=== PATIENT | female | born 1995 | race Hispanic/Latino ===

== ENCOUNTER 2024-11-27 11:06 | Emergency (ER) | payer SELFPAY ==
[~2024-11-27] VITALS: Ht 144.8 cm; Wt 42.6 kg
--- NOTE | 2024-11-27 11:13 | ERN ---
ED Note History of Present Illness Stated Complaint: SQUISHED LEFT THUMB, PRESSURE Chief Complaint: Finger Injury Time Seen by MD: 11:08 Dictation: PATIENT IS A 29-YEAR-OLD FEMALE HERE WITH A CRUSH INJURY AND SUBUNGUAL HEMATOMA TO THE LEFT THUMB ONSET YESTERDAY. SHE STATES SHE CLOSED HER CAR DOOR ON HER THUMB. NO PRIMARY CARE DOCTOR TOOK TYLENOL PRIOR TO ARRIVAL FOR PAIN. SKIN INTACT TO FINGER. Allergies: Coded Allergies: No Known Allergies (Unverified Allergy, Unknown, 11/27/24) Past Medical History History: Not Applicable RN Note Reviewed/Agreed w/PFSH: Yes Review of System Dictation CONSTITUTIONAL: NEGATIVE EXCEPT FOR HPI HEAD/FACE: NEGATIVE EXCEPT FOR HPI EENT: NEGATIVE EXCEPT FOR HPI RESPIRATORY: NEGATIVE EXCEPT FOR HPI GASTROINTESTINAL/ABDOMINAL: NEGATIVE EXCEPT FOR HPI GENITOURINARY: NEGATIVE EXCEPT FOR HPI MUSCULOSKELETAL: NEGATIVE EXCEPT FOR HPI DISTAL LEFT THUMB PAIN WITH HEMATOMA INTEGUMENTARY: NEGATIVE EXCEPT FOR HPI NEUROLOGICAL/PSYCH: NEGATIVE EXCEPT FOR HPI HEMATOLOGIC/LYMPHATIC: NEGATIVE EXCEPT FOR HPI ALL SYSTEMS NEGATIVE, EXCEPT NOTED ABOVE. 13 POINT REVIEW OF SYSTEMS ASSESSED AND ALL NEGATIVE EXCEPT FOR ABOVE. Initial Vital Sign VS Vital Signs Date Time Temp Pulse Resp B/P (MAP) Pulse Ox O2 Delivery O2 Flow Rate FiO2 11/27/24 11:10 97.9 64 16 111/84 97 Room Air 0 Physical Exam Dictation VITAL SIGNS REVIEWED GENERAL APPEARANCE: ALERT, ORIENTED X 3, MODERATE ACUTE DISTRESS, WELL DEVELOP ED, NOURISHED. HEAD AND FACE: NON-TRAUMATIC. EYES: PERRL, PINK CONJUNCTIVAS, EYELID NO TRAUMA, ANTERIOR CHAMBER WITH ARCUS SENILIS. EARS: PINNAS INTACT AND NO SIGNS OF TRAUMA OR ERYTHEMA EAR CANALS CLEAR AND NO DISCHARGE TM NO ERYTHEMA NOSE: NO DISCHARGE, NO BLEEDING. OROPHARYNX: MOUTH NORMAL, TONGUE PINK, PHARYNX CLEAR,NO ERYTHEMA, TONSILS NO EXUDATES, NO ABSCESSES NOTED, MUCOUS MEMBRANE MOIST NECK: SUPPLE, NON-TENDER, NO THYROMEGALY, NO MASSES, NO JVD, NO BRUITS BREAST:DEFERRED CHEST:NO TENDERNESS, NO CREPITUS, NO PARADOXICAL MOVEMENT, NO RETRACTIONS LUNGS:CLEAR, WELL-VENTILATED, SYMMETRIC, NO RALES, NO WHEEZING, NO RHONCHI, NO STRIDOR, GOOD BREATH SOUNDS BILATERALLY HEART: REGULAR RATE, REGULAR RHYTHM, NO MURMUR, NO GALLOPS VASCULAR: NO PERIPHERAL EDEMA, ABDOMEN: SOFT, POSITIVE BOWEL SOUNDS, NONDISTENDED, NO GUARDING, NONTENDER, NO REBOUND, NO MASSES NO HEPATOMEGALY, NO SPLENOMEGALY, NO DURAND'S SIGN, NO HERNIAS. RECTAL: DEFERRED GENITAL: DEFERRED NEUROLOGICAL: NORMAL SPEECH, MOTOR FUNCTION INTACT, SENSORY FUNCTION INTACT MUSCULOSKELETAL: NECK NONTENDER, FULL RANGE OF MOTION, BACK NONTENDER, FULL RANGE OF MOTION, EXTREMITIES: TENDERNESS AND MILD SWELLING TO DISTAL LEFT THUMB WITH SOME UNGUAL HEMATOMA NOTED. SKIN: COLOR PINK, DRY, NO TURGOR, NO RASH, NO LACERATIONS, NO ABRASIONS, NO CONTUSIONS. LYMPHATIC: DEFERRED Results (Laboratory/Radiology) Laboratory/Radiology 1215/LEFT HAND X-RAY NEGATIVE NO DISTAL THUMB FRACTURE Labs Reviewed?: Yes ED Course ED Course Orders Procedure Category Date Status Time Hand 3+Vws Lt RAD 11/27/24 Taken 11:10 Acetaminophen With PHA 11/27/24 Complete Codeine (Tylenol-Code 11:30 Lidocaine Hcl 1% 20ml PHA 11/27/24 Complete Vial (Lidocaine Hc 12:00 Current Medications Medications (Trade) Dose Ordered Sig/Lisa Route PRN Reason Start Time Stop Time Status Last Admin Dose Admin Acetaminophen/ Codeine Phosphate (TYLenol-coDEINE TAB) 2 tab ONCE ONCE PO 11/27/24 11:30 11/27/24 11:31 DC 11/27/24 11:39 Lidocaine HCl (Lidocaine HCl 1% 20ml Vial) 5 ml ONCE ONCE INJ 11/27/24 12:00 11/27/24 12:01 DC 11/27/24 11:40 Vital Signs Date Time Temp Pulse Resp B/P (MAP) Pulse Ox O2 Delivery O2 Flow Rate FiO2 11/27/24 11:10 97.9 64 16 111/84 97 Room Air 0 Medical Decision Making MDM MEDICAL DECISION-MAKING BASED ON X-RAY OF LEFT THUMB TO RULE OUT FRACTURE SUBUNGUAL HEMATOMA WAS EVACUATED USING TREPHINATION PATIENT DISCHARGED HOME ON [place] FOR SEVEN DAYS TOLD TO SEE YOUR PRIMARY CARE DOCTOR FOR FOLLOW UP TOLERATED WELL Procedure Procedure Dictation: 1215/PROCEDURE EXPLAINED TO PATIENT SHE AGREED TO PROCEED PALMAR DISTAL LEFT THUMB PREPPED STERILELY USED 1.5 ML LIDOCAINE 1% PLAIN FOR DIGITAL BLOCK NAIL WAS TREPHINATED WITH18 GAUGE NEEDLE APPROXIMATE 1.5 ML BLOOD EVACUATED PATIENT STATE FELT MARKEDLY BETTER AFTER TREATMENT DX & DISP Disposition: Discharge Departure Impression: Primary Impression: Crushing injury of left thumb, initial encounter Additional Impression: Hematoma, subungual, thumb, left Condition: Stable Scripts Ibuprofen (Ibuprofen 800 mg Tab) 800 Mg Tab 800 MG PO Q8H PRN for fever or pain, #30 TAB 0 Refills Prov: JUANJO MUÑIZ NP 11/27/24 Cephalexin (Cephalexin) 500 Mg Tablet 1 TAB PO TID for 7 Days, #21 TAB 0 Refills Prov: JUANJO MUÑIZ NP 11/27/24 Additional Instructions: FOLLOW-UP WITH PRIMARY CARE PROVIDER IN 1 TO 2 DAYS. TAKE MEDICATIONS DIRECTED HERE IN THE EMERGENCY ROOM. OKAY TO CONTINUE HOME MEDICATIONS UNLESS OTHERWISE DISCUSSED DURING YOUR VISIT IN THE EMERGENCY ROOM TODAY. RETURN TO YOUR NEAREST EMERGENCY ROOM IF SYMPTOMS WORSEN OR IF THERE IS NO IMPROVEMENT. CALL 911 IF YOU NEED IMMEDIATE ASSISTANCE. TAKE TYLENOL OR MOTRIN [id number] NEEDED AND IF NO CONTRAINDICATIONS ARE PRESENT. INCREASE ORAL HYDRATION. A WOUND CULTURE OR URINE CULTURE WAS ORDERED HERE IN THE EMERGENCY ROOM DEPARTMENT PLEASE FOLLOW-UP WITH PRIMARY CARE PROVIDER AND ADVISE THEM TO GET REPEAT PORTS FROM OUR FACILITY. IF YOU HAD ANY MARINA WRAP/SPLINTS THAT WERE APPLIED HERE, PLEASE DO NOT REMOVE THEM UNTIL YOU SEE YOUR PRIMARY CARE OR SPECIALTY. TAKE ANTIBIOTICS DIRECTED UNTIL GONE. KEEP PUNCTURE WOUND TO LEFT THUMB COVERED WITH TRIPLE ANTIBIOTIC OINTMENT/[id number] AND BAND-AID FOR THE NEXT FIVE DAYS. Time of Disposition: 12:18 I have reviewed the case, and I agree with, Diagnosis and Plan JUANJO MUÑIZ NP Nov 27, 2024 11:13
[2024-11-27] MEDS: acetaMINOPHEN WITH coDEINE 1 TAB TAB PO ONE (11:39)
[2024-11-27] MEDS: LIDOCAINE HCL 1% 20 ML VIAL INJ ONE (11:40)
[2024-11-27] MEDS ORDERED: IBUP-2077 PO (12:19)
[2024-11-27] MEDS ORDERED: CEPH500T PO (12:19)
[2024-11-27 12:43] VITALS: BP 118/69; PULSE 65; RESP 18; TEMP 97.3; O2SAT 99
[2024-11-27] MEDS: NEOMY SULF/BACITRA/POLYMYXIN B 1 EACH PACKET TP ONE (12:43)
--- NOTE | 2024-11-27 12:46 | HMCIMG ---
Exam Type: HAND 3+VWS LT Clinical Information: CRUSH INJURY DISTAL LEFT THUMB YESTERDAY Comparison: None Findings: The bone examination is unremarkable. No fractures or dislocations are seen. No radiopaque foreign bodies are noted. Soft tissues are preserved. IMPRESSION: Normal examination.
== END 2024-11-27 12:45 | disposition home or self-care (01) ==
LOC: EEVIPCON 11:06 → EDH 11:06
DX: S67.02XA Crushing injury of left thumb, initial encounter (principal); S60.112A Contusion of left thumb with damage to nail, initial encounter; W23.0XXA Caught, crushed, jammed, or pinched between moving objects, initial encounter; Y93.89 Activity, other specified; Y92.89 Other specified places as the place of occurrence of the external cause; Y99.8 Other external cause status
CPT/HCPCS: 73130; 99283

== ENCOUNTER 2025-02-11 22:37 | Emergency (ER) | payer OTHER ==
[~2025-02-11] VITALS: Ht 144.8 cm; Wt 40.8 kg
[~2025-02-11 22:37] MED LIST: CEPH500T PO; IBUP-2077 PO
[2025-02-11] MEDS: 0.9%NACL 1000ML 1,000 ML IV ONE (23:00)
[2025-02-11] MEDS: acetaMINOPHEN 500 MG TABLET PO ONE (23:01)
--- NOTE | 2025-02-11 23:02 | EKG ---
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
[2025-02-11 23:14] LABS: BASOPHILS # (AUTO) 0.02 K/uL (0.00-0.20); BASOPHILS % (AUTO) 0.3 % (0.0-5.0); EOSINOPHILS # (AUTO) 0.17 K/uL (0.00-0.70); EOSINOPHILS % (AUTO) 2.2 % (0.0-8.0); HEMATOCRIT 37.2 % (36-48); IMMATURE GRANULOCYTE ABSOLUTE 0.03 K/uL (0-1); LYMPHOCYTES # (AUTO) 3.1 K/uL (1.0-4.8); LYMPHOCYTES % (AUTO) 39.6 % (21.0-51.0); MEAN CORPUSCULAR HEMOGLOBIN 31.4 pg (27.0-33.0); MEAN CORPUSCULAR HGB CONC 35.2 g/dL (32.0-36.0); MEAN CORPUSCULAR VOLUME 89.2 fL (79-99); MONOCYTES # (AUTO) 0.6 K/uL (0.1-1.0); MONOCYTES % (AUTO) 8.2 % (3.0-13.0); NEUTROPHILS # (AUTO) 3.8 K/uL (1.8-7.7); NEUTROPHILS % (AUTO) 49.3 % (40.0-77.0); PLATELET COUNT (AUTO) 211 K/uL (130-400); RED BLOOD CELL COUNT(AUTO) 4.17 MIL/uL (4.00-5.50); RED CELL DISTRIBUTION WIDTH 11.9 % (11.0-15.5); WHITE BLOOD COUNT (AUTO) 7.8 K/uL (4.8-10.8)
[2025-02-11 23:23] LABS: ADD UA MICROSCOPIC YES; APPEARANCE,URINE CLOUDY (CLEAR); BILIRUBIN,URINE NEGATIVE (NEGATIVE); COLOR,URINE LIGHT-YELLOW (YELLOW); GLUCOSE, URINE (UA) NEGATIVE (NEGATIVE); KETONES,URINE NEGATIVE (NEGATIVE); LEUKOCYTE ESTERASE ,URINE 25 Leu/uL (NEGATIVE); NITRATE,URINE 2+ (NEGATIVE); OCCULT BLOOD,URINE SMALL (NEGATIVE); PROTEIN,URINE NEGATIVE (NEGATIVE); UROBILINOGEN,URINE 0.2 mg/dL (0.2-1.0)
[2025-02-11 23:26] LABS: BACTERIA,URINE RARE /HPF (None Seen); MUCUS,URINE MANY LPF (None Seen); SQUAMOUS EPITHELIAL CELL,UR MOD /HPF (0-2)
[2025-02-11 23:28] LABS: CREATININE 0.5 mg/dL (0.5-1.0); POTASSIUM 3.6 mmol/L (3.5-5.1)
[2025-02-11 23:30] LABS: AMPHET/METH SCREEN,URINE NEGATIVE (NEGATIVE); BARBITURATE SCREEN, URINE NEGATIVE (NEGATIVE); BENZODIAZEPINES SCREEN,URINE NEGATIVE (NEGATIVE); CANNABINOID SCREEN,URINE NEGATIVE (NEGATIVE); COCAINE SCREEN,URINE NEGATIVE (NEGATIVE); OPIATE SCREEN,URINE NEGATIVE (NEGATIVE); PHENCYCLIDINE SCREEN,URINE NEGATIVE (NEGATIVE)
[2025-02-11 23:33] LABS: MAGNESIUM 2.1 mg/dL (1.80-2.40)
[2025-02-11] MEDS: cefTRIAXone 1G VIAL IVPB ONE (23:44)
--- NOTE | 2025-02-12 00:17 | HMCIMG ---
CT HEAD/BRAIN W/O CONTRAST HISTORY: Dizziness COMPARISON: None TECHNIQUE: Multiple sequential axial images of the head were obtained from the base of the skull through vertex. Patient was not given contrast through intravenous route. FINDINGS: The ventricles and extraventricular CSF spaces are nondilated for patient's age. There is no midline shift, mass effect or herniation. No acute intracranial bleed is seen. Visualized portion of the paranasal sinuses are grossly within normal limits. IMPRESSION: 1. No acute intracranial bleed is seen. CT was performed with one or more following dose reduction techniques: automated exposure control, adjustment of the mA and kv according to patient's size, or use of a iterative reconstruction technique.
[2025-02-12] MEDS ORDERED: MACR100 PO (00:56)
--- NOTE | 2025-02-12 00:57 | ERN ---
ED Note History of Present Illness Stated Complaint: DIZZINESS, NEAR SYNCOPE Chief Complaint: Multiple Complaints Time Seen by MD: 22:40 Time Seen by Midlevel: 22:40 Dictation: The patient is a 29-year-old female with a history of who presents to the emergency department with complaints of dizziness and near-syncope onset today. Patient reports that throughout the day she has been feeling like the room is spinning and she felt like passing out while standing. Patient reports frontal headache. Patient denies any falls, head trauma, fevers, shortness of breath, upper respiratory infection, vomiting. No other complaints reported. Allergies: Coded Allergies: No Known Allergies (Unverified Allergy, Unknown, 11/27/24) Home Meds Active Scripts Ibuprofen (Ibuprofen 800 mg Tab) 800 Mg Tab, 800 MG PO Q8H PRN for fever or pain , #30 TAB 0 Refills Prov:JUANJO MUÑIZ GIFT MANAGER 11/27/24 Cephalexin (Cephalexin) 500 Mg Tablet, 1 TAB PO TID for 7 Days, #21 TAB 0 Refills Prov:JUANJO MUÑIZ GIFT MANAGER 11/27/24 Past Medical History Past Medical History: No Pertinent History Surgical History: History: Not Applicable LMP: February 04, 2025 RN Note Reviewed/Agreed w/PFSH: Yes Review of System Dictation Constitutional: Negative for fever,chills, and weight loss Eyes: Negative for injury, pain,redness, and discharge ENT: Negative for injury,pain or swelling Cardiovascular: Negative for chest pain, palpitations, and edema Respiratory: Negative for shortness of breath, cough, and wheezing, Abdomen/GI: Negative for abdominal pain, nausea, vomiting, diarrhea, and constipation Back: Negative for injury and pain : Negative for injury, bleeding and discharge MS/Extremity: Negative for injury and deformity Skin: Negative for rash, and discoloration Neuro: Negative for weakness, numbness, tingling, and seizure positive for dizziness, headache Psych: Negative for suicide ideation, homicidal ideation, and hallucinations Initial Vital Sign VS Vital Signs Date Time Temp Pulse Resp B/P (MAP) Pulse Ox O2 Delivery O2 Flow Rate FiO2 02/11/25 22:39 98.8 59 18 120/84 99 02/11/25 23:25 Room Air* 0 21 Physical Exam Dictation Vital Signs reviewed General Appearance: Alert, oriented x 3, no acute distress, well developed, nourished. Head and Face: non-traumatic. Eyes: PERRL, pink conjunctivas, eyelid no trauma, anterior chamber with arcus senilis. Ears: Pinnas intact and no signs of trauma or erythema ear canals clear and no discharge TM no erythema Nose: No discharge, no bleeding. Oropharynx: Mouth normal, tongue pink. pharynx clear,no erythema, tonsils no exudates, no abscesses noted, mucous membrane moist Neck: Supple, non-tender, no thyromegaly, no masses, no JVD, no bruits Breast:Deferred Chest:No tenderness, no crepitus, no paradoxical movement, no retractions Lungs:Clear, well-ventilated, symmetric, no rales, no wheezing, no rhonchi, no stridor, good breath sounds bilaterally Heart: Regular rate, regular rhythm, no murmur, no gallops Vascular: no peripheral edema, Abdomen: Soft, positive bowel sounds, nondistended, no guarding, nontender, no rebound, no masses no hepatomegaly, no splenomegaly, no Blount's sign, no hernias. Rectal: Deferred Genital: Deferred Neurological: Normal speech, motor function intact, sensory function intact , upper extremities equal in strength, lower extremities equal in strength, no facial droop Musculoskeletal: Neck nontender, full range of motion, back nontender, full range of motion, Extremities: nontender, full range of motion Skin: Color pink, dry, no turgor, no rash, no lacerations, no abrasions, no contusions. Lymphatic: Deferred Results (Laboratory/Radiology) Laboratory/Radiology Laboratory Tests Test 02/11/25 23:10 02/11/25 23:13 White Blood Count 7.8 K/uL (4.8-10.8) Red Blood Count 4.17 MIL/uL (4.00-5.50) Hemoglobin 13.1 g/dL (12.0-16.0) Hematocrit 37.2 % (36-48) Mean Corpuscular Volume 89.2 fL (79-99) Mean Corpuscular Hemoglobin 31.4 pg (27.0-33.0) Mean Corpuscular Hemoglobin Concent 35.2 g/dL (32.0-36.0) Red Cell Distribution Width 11.9 % (11.0-15.5) Platelet Count 211 K/uL (130-400) Mean Platelet Volume 9.7 fL (7.5-10.5) Immature Granulocyte % (Auto) 0.4 % (0-1) Neutrophils (%) (Auto) 49.3 % (40.0-77.0) Lymphocytes (%) (Auto) 39.6 % (21.0-51.0) Monocytes (%) (Auto) 8.2 % (3.0-13.0) Eosinophils (%) (Auto) 2.2 % (0.0-8.0) Basophils (%) (Auto) 0.3 % (0.0-5.0) Neutrophils # (Auto) 3.8 K/uL (1.8-7.7) Lymphocytes # (Auto) 3.1 K/uL (1.0-4.8) Monocytes # (Auto) 0.6 K/uL (0.1-1.0) Eosinophils # (Auto) 0.17 K/uL (0.00-0.70) Basophils # (Auto) 0.02 K/uL (0.00-0.20) Absolute Immature Granulocyte (auto 0.03 K/uL (0-1) Nucleated Red Blood Cells 0.0 % (0.0-0.19) Sodium Level 141 mmol/L (136-145) Potassium Level 3.6 mmol/L (3.5-5.1) Chloride Level 107 mmol/L (101-111) Carbon Dioxide Level 28 mmol/L (21-32) Blood Urea Nitrogen 12 mg/dL (7-18) Creatinine 0.5 mg/dL (0.5-1.0) Glomerular Filtration Rate Calc 131 mL/min (>90) Random Glucose 103 mg/dL (70-105) Total Calcium 8.8 mg/dL (8.5-10.1) Magnesium Level 2.10 mg/dL (1.80-2.40) Total Creatine Kinase 72 U/L (21-232) Troponin I High Sensitivity 5 ng/L (4-50) Serum Test, Qualitative NEGATIVE (NEGATIVE) Urine Color LIGHT-YELLOW (YELLOW) Urine Appearance CLOUDY (CLEAR) H Urine pH 6.0 (5.0-8.0) Urine Specific Effort 1.028 (1.001-1.031) Urine Protein NEGATIVE mg/dL (NEGATIVE) Urine Glucose (UA) NEGATIVE mg/dL (NEGATIVE) Urine Ketones NEGATIVE mg/dL (NEGATIVE) Urine Occult Blood SMALL (NEGATIVE) H Urine Nitrate 2+ (NEGATIVE) H Urine Bilirubin NEGATIVE mg/dL (NEGATIVE) Urine Urobilinogen 0.2 mg/dL (0.2-1.0) Urine Leukocyte Esterase 25 Jareth/uL (NEGATIVE) H Urine RBC 6-10 /HPF (0-1) H Urine WBC 6-10 /HPF (0-1) H Urine Squamous Epithelial Cells MOD /HPF (0-2) Urine Bacteria RARE /HPF (None Seen) Urine Opiates Screen NEGATIVE (NEGATIVE) Urine Barbiturates Screen NEGATIVE (NEGATIVE) Urine Phencyclidine Screen NEGATIVE (NEGATIVE) Urine Amphetamines Screen NEGATIVE (NEGATIVE) Urine Benzodiazepines Screen NEGATIVE (NEGATIVE) Urine Cocaine Screen NEGATIVE (NEGATIVE) Urine Marijuana (THC) Screen NEGATIVE (NEGATIVE) REASON: dizzy, near syncope ORDERING PHYSICIAN: JUAN RODRIGUEZ PROCEDURE: HEAD WO - CT HEAD/BRAIN W/O CONTRAST CT HEAD/BRAIN W/O CONTRAST HISTORY: Dizziness COMPARISON: None TECHNIQUE: Multiple sequential axial images of the head were obtained from the base of the skull through vertex. Patient was not given contrast through intravenous route. FINDINGS: The ventricles and extraventricular CSF spaces are nondilated for patient's age. There is no midline shift, mass effect or herniation. No acute intracranial bleed is seen. Visualized portion of the paranasal sinuses are grossly within normal limits. IMPRESSION: 1. No acute intracranial bleed is seen. CT was performed with one or more following dose reduction techniques: automated exposure control, adjustment of the mA and kv according to patient's size, or use of a iterative reconstruction technique. Labs Reviewed?: Yes EKG: (+) rhythm (Sinus) EKG Comment: Date:02/11/2025 Time:2300 Ventricular rate:51 DE interval:116 QRS duration:67 QT/QTc:379 EKG interpretation: Sinus rhythm Reviewed by ED Attending no STEMI ED Course ED Course Orders Procedure Category Date Status Time Cbc With Differential LAB 02/11/25 Complete 22:50 Chest 1vw RAD 02/11/25 Taken 22:50 12 Lead Ekg Tracing- EKG 02/11/25 Complete Technical 22:50 0.9%Nacl 1000ml (Ns PHA 02/11/25 Complete 1000ml) 23:00 Magnesium LAB 02/11/25 Complete 22:50 Creatine Kinase, Total LAB 02/11/25 Complete 22:50 Troponin I High LAB 02/11/25 Complete Sensitivity 22:50 Basic Metabolic Panel LAB 02/11/25 Complete 22:50 Testing, LAB 02/11/25 Complete Serum Hcg 22:50 Urinalysis Profile LAB 02/11/25 Complete 22:50 Drug Screen Urine LAB 02/11/25 Complete 22:50 Acetaminophen 500mg PHA 02/11/25 Complete Tab (Tylenol 500mg T 23:00 Culture Urine ZHANG 02/11/25 In Process 23:23 Ceftriaxone 1g Vial PHA 02/12/25 Complete (Rocephine 1g Inj) 00:00 Ct Head/Brain W/O CT 02/11/25 Resulted Contrast 23:39 Current Medications Medications (Trade) Dose Ordered Sig/Lisa Route PRN Reason Start Time Stop Time Status Last Admin Dose Admin Acetaminophen (TYLenol 500MG TAB) 1,000 mg ONCE ONCE PO 02/11/25 23:00 02/11/25 23:01 DC 02/11/25 23:01 Ceftriaxone Sodium (ROCEphine 1G INJ) 1 gm ONCE ONCE IVPB 02/12/25 00:00 02/12/25 00:01 DC 02/11/25 23:44 Sodium Chloride 1,000 ml @ 0 mls/hr ONCE ONCE IV 02/11/25 23:00 02/11/25 23:01 DC 02/11/25 23:00 Vital Signs Date Time Temp Pulse Resp B/P (MAP) Pulse Ox O2 Delivery O2 Flow Rate FiO2 02/11/25 23:25 57 18 103/67 100 Room Air* 0 21 02/11/25 22:39 98.8 59 18 120/84 99 Medical Decision Making MDM The patient is a 29-year-old female with a history of who presents to the emergency department with complaints of dizziness and near-syncope onset today. Patient reports that throughout the day she has been feeling like the room is spinning and she felt like passing out while standing. Patient reports frontal headache. Patient denies any falls, head trauma, fevers, shortness of breath, upper respiratory infection, vomiting. No other complaints reported. CBC showed no leukocytosis, no anemia, chemistry showed no electrolyte imbalance, negative troponin. Urinalysis positive for leukocyte esterase and nitrites. Patient was started on Rocephin and will be discharged on antibiotics. EKG showed sinus bradycardia. CT scan showed no acute pathology. Patient continues neurologically intact, stable vital signs. Reports feeling better after IV fluids. Labs and imaging discussed with the patient who agrees to be discharged and follow up with primary doctor. Differential diagnosis: Dehydration, electrolyte imbalance, tachyarrhythmia, intracerebral hemorrhage Need for hospitalization: Patient does not meet criteria for hospitalization. There are no social concerns with this patient. DX & DISP Disposition: Discharge Departure Impression: Primary Impression: Dizziness Additional Impression: UTI (urinary tract infection) Condition: Stable Scripts Nitrofurantoin/Nitrofuran Mac (Macrobid) 100 Mg Cap 1 CAP PO BID for 5 Days, #10 CAP 0 Refills Prov: JUAN RODRIGUEZ 02/12/25 Additional Instructions: Your lab tests were normal. Your urine showed signs of a urinary tract infection. Follow up on urine culture in about three days. Please follow up with your primary doctor in 1-2 days. Take your medications as prescribed and until completed. If symptoms worsen, please return to ER otherwise follow up with the primary doctor. Continue oral hydration at home. FOLLOW-UP WITH PRIMARY CARE PROVIDER IN 1 TO 2 DAYS. TAKE MEDICATIONS DIRECTED HERE IN THE EMERGENCY ROOM. OKAY TO CONTINUE HOME MEDICATIONS UNLESS OTHERWISE DISCUSSED DURING YOUR VISIT IN THE EMERGENCY ROOM TODAY. RETURN TO YOUR NEAREST EMERGENCY ROOM IF SYMPTOMS WORSEN OR IF THERE IS NO IMPROVEMENT. CALL 911 IF YOU NEED IMMEDIATE ASSISTANCE. TAKE TYLENOL OR MOTRIN [id number] NEEDED AND IF NO CONTRAINDICATIONS ARE PRESENT. INCREASE ORAL HYDRATION. A WOUND CULTURE OR URINE CULTURE WAS ORDERED HERE IN THE EMERGENCY ROOM DEPARTMENT PLEASE FOLLOW-UP WITH PRIMARY CARE PROVIDER AND ADVISE THEM TO GET REPEAT PORTS FROM OUR FACILITY. IF YOU HAD ANY MARINA WRAP/SPLINTS THAT WERE APPLIED HERE, PLEASE DO NOT REMOVE THEM UNTIL YOU SEE YOUR PRIMARY CARE OR SPECIALTY. Referrals: SELF,REFERRAL (PCP) Time of Disposition: 00:52 I have reviewed the case, and I agree with, Diagnosis and Plan JUAN RODRIGUEZ Feb 12, 2025 00:56
[2025-02-12 00:59] VITALS: BP 109/61; PULSE 55; RESP 18; TEMP 98.1; O2SAT 100
--- NOTE | 2025-02-12 10:10 | HMCIMG ---
CHEST 1VW REASON: dizzy COMPARISON: None. FINDINGS: Single view of the chest was obtained. Lungs are clear. Heart size is normal. There is no pulmonary vascular congestion. Mediastinum and bony thorax appear unremarkable. IMPRESSION: 1. Normal single view chest x-ray.
== END 2025-02-12 01:05 | disposition home or self-care (01) ==
LOC: EDH 22:37
DX: R42 Dizziness and giddiness (principal); N39.0 Urinary tract infection, site not specified; Z98.890 Other specified postprocedural states; Z79.899 Other long term (current) drug therapy
CPT/HCPCS: 99285; 96374; 70450; 71045; 82550; 83735; 84484; 80048; 80305; 84703; 85025; 87086; 81001; 36415; 93005; J7030; J0696